=== PATIENT | male | born 1945 | race Caucasian/White ===

== ENCOUNTER 2017-05-22 23:13 | Emergency (ER) | payer OTHER, MEDICAID ==
[~2017-05-22] VITALS: Ht 167.6 cm; Wt 57.6 kg
--- NOTE | 2017-05-22 23:22 | NUR ---
PATIENT AMBULATED TO BED 7 AT THIS TIME.
[2017-05-22 23:28] VITALS: BP 143/78
--- NOTE | 2017-05-22 23:32 | NUR ---
71 Y/O M BIB FAMILY W/C/O SEVERE R SHOULDER PAIN X MTHS. FAMILY STATES PT HAS LUNG CANCER STAGE IV. O2 SAT 925, NO S/S OF RESP DISTRESS NOTED. PER FAMILY PT IS IN HOSPICE CARE AND THEY ARE JUST REQUESTING PAIN MEDICATION D/T PT IN SEVERE PAIN. ER MD MADE AWARE.
[2017-05-22] MEDS ORDERED: ONDANSETRON 4 MG ODT PO ONE (23:45)
[2017-05-22] MEDS ORDERED: HYDROmorphone 1 MG/ML AMP IVP ONE (23:45)
--- NOTE | 2017-05-22 23:55 | NUR ---
Inserted 0.75 inch, 20 gauge barlow needle to right shoulder central IV access port to access. Access and drng under sterile procedure. Tolerated well.
--- NOTE | 2017-05-23 00:40 | NUR ---
D/Cd barlow from port after loading port with Heparin 100 units/ml. Bandaid applied to site. Site benign. Tolerated well.
[2017-05-23 00:45] VITALS: BP 116/68
--- NOTE | 2017-05-23 00:45 | NUR ---
Patient discharged with v/s stable. Written and verbal after care instructions given and explained. Patient verbalized understanding. Ambulatory with steady gait. All questions addressed prior to discharge. Advised to follow up with PMD.
== END 2017-05-23 00:45 | disposition home or self-care (01) ==
LOC: MED 23:13
DX: G89.3 Neoplasm related pain (acute) (chronic) (principal); M25.511 Pain in right shoulder; R03.0 Elevated blood-pressure reading, without diagnosis of hypertension; Z88.6 Allergy status to analgesic agent; Z85.118 Personal history of other malignant neoplasm of bronchus and lung
CPT/HCPCS: 73030; 96374; 99284; J1170; J1642; Q0092; S0119

== ENCOUNTER 2017-06-14 23:00 | Inpatient (IN) | payer OTHER, MEDICAID ==
[~2017-06-14] VITALS: Ht 157.5 cm; Wt 53.1 kg
[2017-06-14 23:10] VITALS: BP 115/71
--- NOTE | 2017-06-14 23:25 | NUR ---
BIBA TO ER BED 3
--- NOTE | 2017-06-14 23:39 | NUR ---
71Y/M PT. BIBA TO ED WITH C/O ABDOMINAL PAIN X 2 DAYS. PT. HX. LUNG CA, TERMINAL, ON HOSPICE CARE. AAO X4, UNABLE TO AMBULATE. RESPIRATIONS ON O2 2 LPM VIA N, EVEN AND UNLABORED. BL LUNG CLEAR. SKIN WARM AND DRY. ABDOMEN SOFT AND NON DISTENDED, ACTIVE BS X 4. C/O PAIN 8/10. VSS, ER MD MADE AWARE OF PT. STATUS.
[2017-06-14] MEDS ORDERED: ACETAMINOPHEN EXTRA STRENGTH 500 MG TAB ONE (23:40)
--- NOTE | 2017-06-14 23:41 | NUR ---
Patient being evaluated by physician at bedside.
[2017-06-14] MEDS ORDERED: NACL 0.9% 500 ML IV ONE (23:45)
[2017-06-15] VITALS (7 sets, daily range): BP systolic 93–119; BP diastolic 54–76
--- NOTE | 2017-06-15 00:05 | NUR ---
TAKE PT. TO CT
[2017-06-15 00:13] LABS: HEMATOCRIT 42.1 % (36-52); HEMOGLOBIN 13.7 g/dL (12.0-18.0); MEAN CORPUSCULAR HEMOGLOBIN 29 pg (27-31); MEAN CORPUSCULAR HGB CONC 33 g/dL (33-37); MEAN CORPUSCULAR VOLUME 90 fL (80-94); PLATELET COUNT (AUTO) 129 K/uL (140-450); RED BLOOD CELL COUNT(AUTO) 4.69 MIL/uL (4.20-6.10); WHITE BLOOD COUNT (AUTO) 6.3 K/uL (4.8-10.8)
[2017-06-15 00:24] LABS: ANION GAP 7.3 (8-16); CARBON DIOXIDE 31.3 mmol/L (21-32); CHLORIDE 104 mmol/L (98-107); CREATININE 0.9 mg/dL (0.7-1.3); GLUCOSE 108 mg/dL (74-106); POTASSIUM 4.6 mmol/L (3.5-5.1); SODIUM SERUM 138 mmol/L (136-145); UREA NITROGEN, BLOOD 24 mg/dL (7-18)
[2017-06-15 00:25] LABS: EOSINOPHILS % (MANUAL) 1 % (0-4); LYMPHOCYTES % (MANUAL) 7 % (20-46); MONOCYTES % (MANUAL) 10 % (5-12)
[2017-06-15 00:30] LABS: ALBUMIN 2.9 g/dL (3.4-5.0); ASPARTATE AMINOTRANSFERASE 467 U/L (15-37); TOTAL BILIRUBIN 0.5 mg/dL (0.0-1.0)
--- NOTE | 2017-06-15 00:35 | NUR ---
BACK FROM CT
[2017-06-15 00:37] LABS: APPEARANCE,URINE CLEAR (CLEAR); BILIRUBIN,URINE NEGATIVE (NEGATIVE); BLOOD, URINE NEGATIVE (NEGATIVE); COLOR,URINE YELLOW (YELLOW); LEUKOCYTE ESTERASE ,URINE NEGATIVE (NEGATIVE); NITRITE, URINE NEGATIVE (NEGATIVE); UGLUCOSE NEGATIVE (NEGATIVE)
[2017-06-15] MEDS ORDERED: HYDROmorphone 1 MG/ML AMP IVP ONE (00:40)
[2017-06-15 00:49] LABS: RBC,URINE 0-5 (RARE) /HPF (0-5); WBC,URINE 0-5 (RARE) /HPF (0-5)
--- NOTE | 2017-06-15 01:05 | NUR ---
Patient appears to be resting comfortably in bed. Vital Signs within normal limits. Respirations even and unlabored.
[2017-06-15] MEDS: NACL 0.9% 1,000 ML IV SCH ×2 (01:44→21:44)
[2017-06-15] MEDS ORDERED: ACETAMINOPHEN 325 MG TAB PO PRN (01:45)
[2017-06-15] MEDS ORDERED: PIPERACILLIN/TAZOBACTAM 4.5 GM in DEXTROSE 5% 100 ML IV ONE (02:05)
[2017-06-15] MEDS ORDERED: MORP30TA10 PO (02:09)
[2017-06-15] MEDS ORDERED: AMLO5TAB PO (02:09)
[2017-06-15] MEDS ORDERED: PROC10TA PO (02:09)
[2017-06-15] MEDS ORDERED: ONDA8ODT2 PO (02:09)
[2017-06-15] MEDS ORDERED: [UNRECOGNIZED DRUG - CODE] PO (02:09)
[2017-06-15] MEDS ORDERED: folic acid PO (02:09)
[2017-06-15] MEDS ORDERED: HYDR5TAB PO (02:09)
[2017-06-15] MEDS ORDERED: CYAN100058 PO (02:09)
[2017-06-15] MEDS ORDERED: RIVA15TA1 PO (02:09)
[2017-06-15] MEDS ORDERED: OMEP40EC14 PO (02:09)
--- NOTE | 2017-06-15 02:09 | NUR ---
PT IS AWAKE AND ALERT. GAVE INSTRUCTIONS ON HOW TO GIVE SPUTUM SAMPLE. DAUGHTER HELPED TRANSLATE TO [place]. PT VERBALIZED UNDERSTANDING. PT WILL LET NURSE KNOW WHEN HE SPITS IN CUB.
--- NOTE | 2017-06-15 02:15 | NUR ---
RECEIVED PATIENT FROM THE ER, ACCOMPANIED BY FAMILY. PT IS AOX4, CITIZEN OF [place] SPEAKING, IS ABLE TO MAKE NEEDS KNOWN. NOTED WITH WHEEZING, BUT NO S/S OF DISTRESS. ABDOMEN ROUND, TENDER ON PALPATION AND UPON MOVEMENT. ON O2 VIA NC AT 2 L, WELL TOLERATED BY THE PATIENT. ON TELE MONITORING. NO COMPLAINTS OF PAIN AT THIS TIME. WITH A R AC 18 G, INTACT AND PATENT. NOTED WITH A PORTACATH ON THE RIGHT UPPER CHEST. SKIN INTACT. INITIAL ASSESSMENT DONE. ORIENTED PATIENT TO THE UNIT, VERBALIZED UNDERSTANDING. CALL LIGHT WITHIN REACH. SAFETY CHECKS IN PLACE. WILL CONTINUE TO MONITOR. ALL NEEDS ATTENDED.
--- NOTE | 2017-06-15 02:25 | NUR ---
Patient will be admitted to care of . Admited to TELEMETRY. Will go to room 111B. Belongings list completed. Report to LIA CORONA.
[2017-06-15 02:36] LABS: PROTHROMBIN TIME 10.8 secs (10.8-13.4)
[2017-06-15 02:40] LABS: CHOL/HDL RATIO 2.8 (1-4.5); FREE T4 (FREE THYROXINE) 1.42 ng/dL (0.76-1.46); MAGNESIUM 2.4 mg/dL (1.8-2.4); PHOSPHORUS 2.9 mg/dL (2.5-4.9); THYROID STIMULATING HORMONE 1.05 uIU/mL (0.34-3.74)
[2017-06-15] MEDS ORDERED: ONDANSETRON 4 MG ODT PO SCH (02:55)
[2017-06-15] MEDS ORDERED: ALBUTEROL SULFATE/IPRATROPIU 3 ML SOL IH PRN (02:55)
[2017-06-15] MEDS ORDERED: LEVOFLOXACIN 750 MG/D5W PREMIX 150 ML IV SCH (03:00)
--- NOTE | 2017-06-15 03:00 | NUR ---
APPLIED SEQUENTIALS TO PATIENT. NO S/S OF DISTRESS. WILL CONTINUE TO MONITOR.
--- NOTE | 2017-06-15 03:00 | NUR ---
HANGED NORMAL SALINE, IV INTACT AND PATENT. WILL CONTINUE TO MONITOR.
[2017-06-15] MEDS ORDERED: CLINDAMYCIN 600 MG/4 ML VIAL ONE (03:26)
[2017-06-15] MEDS ORDERED: LEVOFLOXACIN 750 MG/D5W PREMIX 150 ML IV ONE (03:27)
[2017-06-15] MEDS ORDERED: PIPERACILLIN/TAZOBACTAM 2.25 GM VIAL IV ONE (03:28)
--- NOTE | 2017-06-15 03:28 | NUR ---
PAULINE PARIS, WILL CONTINUE TO MONITOR FOR CHANGES.
--- NOTE | 2017-06-15 04:00 | NUR ---
VITAL SIGNS STABLE. NO S/S OF DISTRESS, NO COMPLAINTS OF PAIN. WILL CONTINUE TO MONITOR.
--- NOTE | 2017-06-15 04:15 | NUR ---
RAINA RANDLE PER MD ORDER. WILL CONTINUE TO MONITOR. VITAL SIGNS STABLE.
[2017-06-15] MEDS ORDERED: MORPHINE SULFATE 2 MG/ML SYR IVP PRN (04:30)
[2017-06-15] MEDS ORDERED: BISACODYL 10 MG SUPP RC SCH (04:30)
[2017-06-15] MEDS: CLINDAMYCIN 600 MG in DEXTROSE 5% 50 ML IV SCH ×3 (05:50→20:42)
--- NOTE | 2017-06-15 05:55 | NUR ---
HANGED CLEOCIN, IV PATENT AND INTACT. NO S/S OF DISTRESS. NO COMPLAINTS OF PAIN. PATIENT SEEN HAVING A NON-PRODUCTIVE COUGH. WILL CONTINUE TO MONITOR. ALL NEEDS ATTENDED. CALL LIGHT WITHIN REACH. SAFETY CHECKS IN PLACE.
--- NOTE | 2017-06-15 06:30 | NUR ---
INFORMED PATIENT THAT HE NEEDS TO DO A SPUTUM CULTURE, VERBALIZED UNDERSTANDING. WILL CONTINUE TO MONITOR. ALL NEEDS ATTENDED. CALL LIGHT WITHIN REACH.
[2017-06-15] MEDS: ALBUTEROL SULFATE/IPRATROPIU 3 ML SOL IH SCH ×3 (06:45→19:14)
--- NOTE | 2017-06-15 06:55 | NUR ---
PT WAS ABLE TO EXPECTORATE THE SPUTUM, SAMPLE SENT TO THE LAB.
--- NOTE | 2017-06-15 07:08 | NUR ---
SPUTUM SAMPLE COLLECTED AND GIVEN TO LAI CODY.
--- NOTE | 2017-06-15 07:22 | NUR ---
ENDORSED TO AM SHIFT NURSE FOR CONTINUITY OF CARE, IN STABLE CONDITION
--- NOTE | 2017-06-15 07:23 | NUR ---
RECEIVED PT FROM GLO FITZGERALD AT BEDSIDE. PT IS A&OX4. PT HAS PORT-A-CATH ON R U CHEST. SCDS ON. PT HAS IV ON R AC 18 G RUNNING NS@50. HELPED PT TO BEDSIDE COMMODE. PT VOIDED AND HAD BM. TOLERATED WELL. BACK TO BED. PT IS ON NC 2L. BED ALARM ON. EDUCATED PT TO CALL FOR HELP. CALL LIGHT WITHIN REACH. WILL CONTINUE TO MONITOR.
[2017-06-15 07:47] LABS: PROTHROMBIN TIME 11.7 secs (10.8-13.4)
[2017-06-15] MEDS: amLODIPine 5 MG TAB PO SCH (08:46)
[2017-06-15] MEDS: PANTOPRAZOLE 40 MG INJ VIAL IVP SCH (08:46)
[2017-06-15] MEDS: CYANOCOBALAMIN 1,000 MCG TAB PO SCH (08:46)
[2017-06-15] MEDS: DOCUSATE SODIUM 100 MG GELCAP PO SCH ×2 (08:46→20:41)
[2017-06-15] MEDS: LACTOBACILLUS RHAMNOSUS GG 1 EACH CAP PO SCH (08:46)
--- NOTE | 2017-06-15 09:30 | NUR ---
PT IS RESTING COMFORTABLY IN BED. NO DISTRESS NOTED. CALL LIGHT WITHIN REACH. WILL CONTINUE TO MONITOR.
--- NOTE | 2017-06-15 09:53 | NUR ---
PATIENT HAS BEEN SCREENED AND CATEGORIZED HIGH NUTRITION RISK. PATIENT WILL BE SEEN WITHIN 1-2 DAYS OF ADMISSION. 06/15/17-06/16/[address]
--- NOTE | 2017-06-15 11:30 | NUR ---
AT BEDSIDE. NO DISTRESS NOTED IN PT. NO COMPLAINTS AT THIS TIME. CALL LIGHT WITHIN REACH. WILL CONTINUE TO MONITOR.
--- NOTE | 2017-06-15 13:45 | NUR ---
RT GAVE TX TO PT. PT TOLERATED WELL. CALL LIGHT WITHIN REACH. WILL CONTINUE TO MONITOR.
--- NOTE | 2017-06-15 15:00 | NUR ---
PT IS RESTING COMFORTABLY IN BED. NO DISTRESS NOTED. CALL LIGHT WITHIN REACH. WILL CONTINUE TO MONITOR.
--- NOTE | 2017-06-15 15:56 | NUR ---
06/15/17 RD INITIAL ASSESSMENT COMPLETED PLEASE REFER TO NUTRITION ASSESSMENT UNDER CARE ACTIVITY FOR ESTIMATED NUTRITIONAL NEEDS. RD RECOMMENDATIONS: 1. CONTINUE NPO MEDICALLY APPROPRIATE. 2. IF/WHEN PT IS MEDICALLY STABLE TO BEGIN NUTRITION, CONSIDER TEXTURE RECOMMENDATIONS PER ST AND ADDING ORAL NUTRITION SUPPLEMENT WITH MEALS FOR ADEQUATE KCAL AND PROTEIN. 3. IF PT WILL NEED NUTRITION SUPPORT, PLEASE CONSULT RD FOR RECOMMENDATIONS. 4. RD WILL F/U 2-3 DAYS; HIGH RISK. LYNSEY VELASQUEZ, RD
[2017-06-15] MEDS: RIVAROXABAN 15 MG TAB PO SCH (16:21)
--- NOTE | 2017-06-15 17:29 | NUR ---
ANSWERED 'S QUESTIONS AT BEDSIDE. CALL LIGHT WITHIN REACH. WILL CONTINUE TO MONITOR.
[2017-06-15] MEDS: ACETYLCYSTEINE 10% (100 MG/ML) 100 MG/ML VIAL INH SCH (19:15)
--- NOTE | 2017-06-15 19:18 | NUR ---
ENDORSED CARE OF PT TO GLIBERT FITZGERALD AT BEDSIDE. PT IN STABLE CONDITION.
--- NOTE | 2017-06-15 19:20 | NUR ---
RECEIVED PATIENT REPORT AT BEDSIDE FROM MORNING NURSE. NO SIGNS AND SYMPTOMS OF DISTRESS AT THIS TIME. IV SITE NOTED ON RIGHT AC, IVF RUNNING WELL. PORT-A-CATH NOTED ON RIGHT UPPER CHEST. PT ON 2L O2 VIA NC. PATIENT COMPLAINED OF 4/10 ABDOMINAL PAIN. WILL MEDICATE.
[2017-06-15] MEDS: HYDROcodone/APAP 7.5/325 MG 1 TAB PO PRN (20:41)
--- NOTE | 2017-06-15 23:37 | NUR ---
CHECKED ON PATIENT. PATIENT IS ASLEEP. NO SIGNS AND SYMPTOMS OF DISTRESS NOTED. WILL CONTINUE TO MONITOR.
[2017-06-16] MEDS: HYDROcodone/APAP 7.5/325 MG 1 TAB PO PRN (02:57)
--- NOTE | 2017-06-16 03:57 | NUR ---
CHECKED ON PATIENT. PATIENT IS ASLEEP. NO SIGNS AND SYMPTOMS OF DISTRESS NOTED. WILL CONTINUE TO MONITOR
[2017-06-16 04:00] VITALS: BP 102/75
[2017-06-16] MEDS: CLINDAMYCIN 600 MG in DEXTROSE 5% 50 ML IV SCH ×3 (04:17→21:13)
[2017-06-16] MEDS: NACL 0.9% 1,000 ML IV SCH (04:19)
[2017-06-16] MEDS: ALBUTEROL SULFATE/IPRATROPIU 3 ML SOL IH SCH ×3 (07:12→19:04)
[2017-06-16] MEDS: ACETYLCYSTEINE 10% (100 MG/ML) 100 MG/ML VIAL INH SCH ×3 (07:12→17:00)
[2017-06-16 07:17] LABS: BASOPHILS # (AUTO) 0.1 K/uL (0.00-0.22); BASOPHILS % (AUTO) 1.4 % (0.0-2.0); EOSINOPHILS # (AUTO) 0.1 K/uL (0-0.4); EOSINOPHILS % (AUTO) 2.1 % (0.0-4.0); HEMATOCRIT 38.3 % (36-52); HEMOGLOBIN 12.7 g/dL (12.0-18.0); LYMPHOCYTES # (AUTO) 0.7 K/uL (2.0-11.5); LYMPHOCYTES % (AUTO) 11.9 % (20.5-51.1); MEAN CORPUSCULAR HEMOGLOBIN 29 pg (27-31); MEAN CORPUSCULAR HGB CONC 33 g/dL (33-37); MEAN CORPUSCULAR VOLUME 89 fL (80-94); MONOCYTES # (AUTO) 0.6 K/uL (0.8-1.0); MONOCYTES % (AUTO) 10.8 % (1.7-9.3); NEUTROPHILS % (AUTO) 73.8 % (42.2-75.2); PLATELET COUNT (AUTO) 108 K/uL (140-450); RED BLOOD CELL COUNT(AUTO) 4.32 MIL/uL (4.20-6.10); RED CELL DISTRIBUTION WIDTH 14.9 % (11.6-13.7); WHITE BLOOD COUNT (AUTO) 5.5 K/uL (4.8-10.8)
[2017-06-16 07:21] LABS: ANION GAP 12.1 (8-16); CARBON DIOXIDE 25.3 mmol/L (21-32); CHLORIDE 104 mmol/L (98-107); CREATININE 0.8 mg/dL (0.7-1.3); GLUCOSE 63 mg/dL (74-106); POTASSIUM 4.4 mmol/L (3.5-5.1); SODIUM SERUM 137 mmol/L (136-145); UREA NITROGEN, BLOOD 22 mg/dL (7-18)
--- NOTE | 2017-06-16 07:25 | NUR ---
PATIENT REPORT GIVEN TO MORNING NURSE. PATIENT IS IN STABLE CONDITION. NO SIGNS AND SYMPTOMS OF DISTRESS NOTED. NO COMPLAINTS OF PAIN.
--- NOTE | 2017-06-16 07:26 | NUR ---
RECEIVED PT FROM GILBERT FITZGERALD AT BEDSIDE. PT IS A&OX4. REINTRODUCED MYSELF. PT HAS IV ON R AC 18 G RUNNING NS@50. PT HAS A PORT-A-CATH ON R U CHEST. NO COMPLAINTS AT THIS TIME. CALL LIGHT WITHIN REACH. WILL CONTINUE TO MONITOR.
[2017-06-16 07:41] LABS: MAGNESIUM 2.2 mg/dL (1.8-2.4); PHOSPHORUS 3.6 mg/dL (2.5-4.9)
[2017-06-16 08:00] VITALS: BP 126/74
[2017-06-16] MEDS: PANTOPRAZOLE 40 MG INJ VIAL IVP SCH (08:35)
[2017-06-16] MEDS: CYANOCOBALAMIN 1,000 MCG TAB PO SCH (08:35)
[2017-06-16] MEDS: LEVOFLOXACIN 750 MG/D5W PREMIX 150 ML IV SCH (08:35)
[2017-06-16] MEDS: LACTOBACILLUS RHAMNOSUS GG 1 EACH CAP PO SCH (08:35)
[2017-06-16] MEDS: amLODIPine 5 MG TAB PO SCH (08:36)
[2017-06-16] MEDS: DOCUSATE SODIUM 100 MG GELCAP PO SCH ×2 (08:36→21:09)
[2017-06-16] MEDS ORDERED: BISACODYL 10 MG SUPP RC PRN (10:45)
--- NOTE | 2017-06-16 11:26 | NUR ---
AT BEDSIDE. PT IN STABLE CONDITION. CALL LIGHT WITHIN REACH. WILL CONTINUE TO MONITOR.
[2017-06-16 12:00] VITALS: BP 128/71
--- NOTE | 2017-06-16 12:45 | NUR ---
INSERTED NEW IV ON R HAND 22 G. REMOVED OLD IV DUE TO BEING PAINFUL. PT TOLERATED WELL. CALL LIGHT WITHIN REACH. WILL CONTINUE TO MONITOR.
[2017-06-16] MEDS: ONDANSETRON 4 MG/2 ML VIAL IVP PRN ×2 (13:33→17:32)
--- NOTE | 2017-06-16 14:30 | NUR ---
PT REQUESTS ZOFRAN TO BE ADMINISTERED BEFORE EVERY MEAL. WILL CARRY OUT AND ENDORSE TO NEXT SHIFT.
[2017-06-16 16:00] VITALS: BP 123/69
--- NOTE | 2017-06-16 16:30 | NUR ---
PT IN STABLE CONDITION. FAMILY AT BEDSIDE. CALL LIGHT WITHIN REACH. WILL CONTINUE TO MONITOR.
[2017-06-16] MEDS: RIVAROXABAN 15 MG TAB PO SCH (17:32)
--- NOTE | 2017-06-16 18:00 | NUR ---
FAMILY AT BEDSIDE. NO DISTRESS NOTED IN PT. CALL LIGHT WITHIN REACH. WILL CONTINUE TO MONITOR.
--- NOTE | 2017-06-16 19:35 | NUR ---
ENDORSED CARE OF PT TO ALKA RN AT BEDSIDE. PT IN STABLE CONDITION.
--- NOTE | 2017-06-16 19:36 | NUR ---
RECEIVED REPORT FROM AM NURSE. PT IS IN STABLE CONDITION, AWAKE, ALERT AND ORIENTED X 4. MED SURG PT ON 02 2L VIA NC. IV ACCESS ON RIGHT HAND GAUGE 22. SHAHEED CATHETER ON THE RIGHT CHEST HL. FAMILY AT BEDSIDE, PLAN OF CARE DISCUSSED WITH PT AND FAMILY, BOTH VERBALIZED UNDERSTANDING. PT IS AMBULATORY WITH STAND BY ASSIST. BED ON LOW POSITION, CALL LIGHT AND URINAL WITHIN REACH. WILL CONTINUE TO MONITOR.
[2017-06-16 19:45] VITALS: BP 124/64
--- NOTE | 2017-06-16 20:05 | NUR ---
FAMILY AND PT EXPRESSED CONCERN REGARDING MORPHINE MEDICATION PT IS CURRENTLY RECEIVING IN HOSPITAL THROUGH IV PUSH. STATES THE IV MEDICATION DOES NOT HAVE SAME EFFECT, AND WOULD PREFER TO CHANGE TO HIS ROUTINE MORPHINE MEDICATION, PO BID. DR. LOPEZ (RESIDENT) WAS MADE AWARE OF FAMILY CONCERN AND WILL UPDATE CURRENT ORDER TO A PO MEDICATION.
[2017-06-16] MEDS ORDERED: ACETYLCYSTEINE 10% (100 MG/ML) 100 MG/ML VIAL INH PRN (20:15)
[2017-06-16] MEDS: MORPHINE TAB ER 30 MG TABER PO SCH (21:09)
[2017-06-16] MEDS: LACTULOSE 20 GM/30 ML UDC PO SCH (21:10)
[2017-06-17 00:05] VITALS: BP 106/62
--- NOTE | 2017-06-17 03:05 | NUR ---
MADE ROUNDS. PT IS SLEEPING SHOWING NO S/S OF DISCOMFORT. WILL CONTINUE TO MONITOR.
[2017-06-17] MEDS: NACL 0.9% 1,000 ML IV SCH (04:45)
--- NOTE | 2017-06-17 04:50 | NUR ---
RT SUBCLAVIAN SHAHEED CATH CLEANSED ASEPTICALLY THEN IN USE FOR IVF PER MD ORDER. DRESSING IN PLACED.
[2017-06-17] MEDS: CLINDAMYCIN 600 MG in DEXTROSE 5% 50 ML IV SCH ×3 (04:54→21:04)
--- NOTE | 2017-06-17 07:20 | NUR ---
ASSUMED CONTINUITY OF CARE. NO SIGNS AND SYMPTOMS OF ACUTE DISTRESS NOTED. INITIAL ASSESSMENT DONE. HOB ELEVATED AT 30 DEGREES. KEEP COMFORTABLE ON BED. EXPLAINED DIAGNOSIS, PLAN OF CARE, PAIN MANAGEMENT TEACHING, USE OF CALL LIGHT/BED/TV/BATHROOM. VERBALIZED UNDERSTANDING. FALL PRECAUTION APPLIED. CALL LIGHT WITHIN REACH.
--- NOTE | 2017-06-17 07:25 | NUR ---
ENDORSED PT IN STABLE CONDITION TO AM NURSE.
[2017-06-17] MEDS: ALBUTEROL SULFATE/IPRATROPIU 3 ML SOL IH SCH ×3 (07:27→19:06)
[2017-06-17] MEDS: ACETYLCYSTEINE 10% (100 MG/ML) 100 MG/ML VIAL INH SCH ×3 (07:28→18:00)
--- NOTE | 2017-06-17 07:40 | NUR ---
RT BOSS CAME FOR PT. BREATHING TREATMENT. TOLERATED WELL.
[2017-06-17 08:00] VITALS: BP 97/65
[2017-06-17] MEDS: amLODIPine 5 MG TAB PO SCH (09:00)
[2017-06-17 09:05] VITALS: BP 104/59
[2017-06-17] MEDS: LACTULOSE 20 GM/30 ML UDC PO SCH ×2 (09:11→21:04)
[2017-06-17] MEDS: CYANOCOBALAMIN 1,000 MCG TAB PO SCH (09:12)
[2017-06-17] MEDS: LACTOBACILLUS RHAMNOSUS GG 1 EACH CAP PO SCH (09:12)
[2017-06-17] MEDS: MORPHINE TAB ER 30 MG TABER PO SCH ×2 (09:12→21:05)
[2017-06-17] MEDS: DOCUSATE SODIUM 100 MG GELCAP PO SCH ×2 (09:16→21:05)
[2017-06-17] MEDS: PANTOPRAZOLE 40 MG INJ VIAL IVP SCH (10:15)
[2017-06-17] MEDS: LEVOFLOXACIN 750 MG/D5W PREMIX 150 ML IV SCH (10:16)
[2017-06-17 10:48] LABS: BASOPHILS # (AUTO) 0.1 K/uL (0.00-0.22); BASOPHILS % (AUTO) 1.1 % (0.0-2.0); EOSINOPHILS # (AUTO) 0.1 K/uL (0-0.4); EOSINOPHILS % (AUTO) 2.8 % (0.0-4.0); HEMATOCRIT 37.9 % (36-52); HEMOGLOBIN 12.4 g/dL (12.0-18.0); LYMPHOCYTES # (AUTO) 0.5 K/uL (2.0-11.5); LYMPHOCYTES % (AUTO) 10.7 % (20.5-51.1); MEAN CORPUSCULAR HEMOGLOBIN 29 pg (27-31); MEAN CORPUSCULAR HGB CONC 33 g/dL (33-37); MEAN CORPUSCULAR VOLUME 89 fL (80-94); MONOCYTES # (AUTO) 0.6 K/uL (0.8-1.0); MONOCYTES % (AUTO) 11.4 % (1.7-9.3); NEUTROPHILS # (AUTO) 3.8 K/uL (1.8-7.7); PLATELET COUNT (AUTO) 149 K/uL (140-450); RED BLOOD CELL COUNT(AUTO) 4.24 MIL/uL (4.20-6.10); RED CELL DISTRIBUTION WIDTH 14.8 % (11.6-13.7); WHITE BLOOD COUNT (AUTO) 5.1 K/uL (4.8-10.8)
[2017-06-17 11:05] LABS: ANION GAP 10.7 (8-16); CHLORIDE 105 mmol/L (98-107); CREATININE 0.9 mg/dL (0.7-1.3); GLUCOSE 102 mg/dL (74-106); POTASSIUM 3.7 mmol/L (3.5-5.1); SODIUM SERUM 140 mmol/L (136-145); UREA NITROGEN, BLOOD 21 mg/dL (7-18)
[2017-06-17 11:09] LABS: MAGNESIUM 2.4 mg/dL (1.8-2.4)
--- NOTE | 2017-06-17 11:55 | NUR ---
RT SIMS CAME FOR PT. SCHEDULED BREATHING TREATMENT.
[2017-06-17 12:00] VITALS: BP 96/56
--- NOTE | 2017-06-17 12:17 | NUR ---
PATIENT PRESENTING WITH STRONG PRODUCTIVE COUGH MODERATE THICK YELLOW SECRETIONS
[2017-06-17] MEDS: ONDANSETRON 4 MG/2 ML VIAL IVP PRN ×2 (13:20→21:05)
--- NOTE | 2017-06-17 15:40 | NUR ---
HHN INDUCED THERAPY FOR SPUTUM TOLERATED TX WELL WITHOUT ADVERSE REACTIONS NOTED
--- NOTE | 2017-06-17 15:59 | NUR ---
POST HHN THERAPY TO INDUCE SPUTUM PATIENT UNABLE TO PRODUCE SPONTANEOUS EXPECTORATIONS AT THIS TIME SPECIMEN PLACED ON BEDSIDE TABLE EDUCATION PROVIDED TO PATIENT WITH ACKNOWLEDGEMENT THAT SPECIMEN CUP IS FOR SPUTUM ONLY SAMMIE/LIA NOTIFIED
--- NOTE | 2017-06-17 16:28 | NUR ---
ASSISTED TO BATHROOM. TOLERATED WELL. NO C/O PAIN. NO SOB, NOTED. CONTINUE MONITORING.
[2017-06-17] MEDS: RIVAROXABAN 15 MG TAB PO SCH (17:35)
--- NOTE | 2017-06-17 19:20 | NUR ---
BEDSIDE REPORT GIVEN TO VALERY KHOURY. IVF INFUSING WELL. IN STABLE CONDITION. FAMILY MEMBERS ON BEDSIDE.
--- NOTE | 2017-06-17 19:30 | NUR ---
RECEIVED REPORT FROM AM NURSE. PT FAMILY AT BEDSIDE, PT RESTING IN BED, AOX4, ABLE TO VERBALIZE NEEDS. PT C/O NAUSEA, WILL ADMINISTER ZOFRAN PRN ORDERED. O2 2L NC NOTED. PT DENIES CHEST PAIN, SOB OR S/S OF ACUTE DISTRESS. PORTACATH TO RIGHT SUBCLAVIAN NOTED, IVF INFUSING WELL. DISCUSSED AND REVIEWED PLAN OF CARE WITH PT AND PT'S FAMILY. PT INSTRUCTED TO REMAIN NPO EXCEPT MEDS. PT VERBALIZED UNDERSTANDING. ALL NEEDS MET. SAFETY MEASURES ENSURED. CALL LIGHT WITHIN REACH. WILL CONTINUE TO MONITOR.
[2017-06-17 20:00] VITALS: BP 140/70
--- NOTE | 2017-06-17 21:10 | NUR ---
ASSISTED PT TO RESTROOM, PT ABLE TO AMBULATE WITH STANDBY ASSIST. PT BACK TO BED, HOB HIGH FOWLERS ADMINISTERED DUE MEDICATIONS WITH EDUCATION. PT C/O NAUSEA. ADMINISTERED ZOFRAN IV PRN ORDERED. PT VERBALIZED UNDERSTANDING, TOLERATED MEDS WELL. ALL NEEDS MET. SAFETY MEASURES ENSURED. CALL LIGHT WITHIN REACH. WILL CONTINUE TO MONITOR.
[2017-06-18] VITALS: BP 106/57
--- NOTE | 2017-06-18 00:15 | NUR ---
PT RESTING COMFORTABLY. SPO2 92%, O2 2L NC, PT DENIES SOB. PT ASSISTED TO USE IS, PT ABLE TO USE 10X, INSTRUCTED TO USE IS EVERY HOUR TOLERATED. ALL NEEDS MET. SAFETY MEASURES ENSURED. CALL LIGHT WITHIN REACH.
--- NOTE | 2017-06-18 04:15 | NUR ---
PT SLEEPING COMFORTABLY. SPO2 92% WITH O2 2L NC, RR 20 NONLABORED, NO S/S OF SOB OR ACUTE DISTRESS. ALL NEEDS MET. SAFETY MEASURES ENSURED. CALL LIGHT WITHIN REACH. WILL CONTINUE TO MONITOR.
[2017-06-18] MEDS: CLINDAMYCIN 600 MG in DEXTROSE 5% 50 ML IV SCH ×3 (05:16→21:21)
[2017-06-18 06:10] LABS: BASOPHILS # (AUTO) 0.1 K/uL (0.00-0.22); BASOPHILS % (AUTO) 1.7 % (0.0-2.0); EOSINOPHILS # (AUTO) 0.1 K/uL (0-0.4); EOSINOPHILS % (AUTO) 2.7 % (0.0-4.0); HEMATOCRIT 34.4 % (36-52); HEMOGLOBIN 11.6 g/dL (12.0-18.0); LYMPHOCYTES # (AUTO) 0.7 K/uL (2.0-11.5); LYMPHOCYTES % (AUTO) 15.8 % (20.5-51.1); MEAN CORPUSCULAR HEMOGLOBIN 30 pg (27-31); MEAN CORPUSCULAR HGB CONC 34 g/dL (33-37); MEAN CORPUSCULAR VOLUME 90 fL (80-94); MONOCYTES # (AUTO) 0.4 K/uL (0.8-1.0); MONOCYTES % (AUTO) 8.4 % (1.7-9.3); NEUTROPHILS # (AUTO) 3.1 K/uL (1.8-7.7); NEUTROPHILS % (AUTO) 71.4 % (42.2-75.2); PLATELET COUNT (AUTO) 115 K/uL (140-450); RED BLOOD CELL COUNT(AUTO) 3.84 MIL/uL (4.20-6.10); RED CELL DISTRIBUTION WIDTH 14.9 % (11.6-13.7); WHITE BLOOD COUNT (AUTO) 4.4 K/uL (4.8-10.8)
[2017-06-18 06:36] LABS: ANION GAP 12.8 (8-16); CARBON DIOXIDE 25.1 mmol/L (21-32); CHLORIDE 107 mmol/L (98-107); CREATININE 0.8 mg/dL (0.7-1.3); GLUCOSE 72 mg/dL (74-106); POTASSIUM 3.9 mmol/L (3.5-5.1); SODIUM SERUM 141 mmol/L (136-145); UREA NITROGEN, BLOOD 18 mg/dL (7-18)
[2017-06-18 06:51] LABS: MAGNESIUM 2.4 mg/dL (1.8-2.4); PHOSPHORUS 3.2 mg/dL (2.5-4.9)
--- NOTE | 2017-06-18 07:14 | NUR ---
ASSUMED CONTINUITY OF CARE. NO SIGNS AND SYMPTOMS OF ACUTE DISTRESS NOTED. INITIAL ASSESSMENT DONE. HOB ELEVATED. KEEP COMFORTABLE ON BED. FALL PRECAUTION APPLIED. CALL LIGHT WITHIN REACH.
--- NOTE | 2017-06-18 07:14 | NUR ---
ENDORSED PLAN OF CARE TO AM NURSE. CONDITION STABLE.
[2017-06-18] MEDS: ALBUTEROL SULFATE/IPRATROPIU 3 ML SOL IH SCH ×3 (07:17→19:47)
[2017-06-18] MEDS: ACETYLCYSTEINE 10% (100 MG/ML) 100 MG/ML VIAL INH SCH ×3 (07:17→19:48)
[2017-06-18 08:00] VITALS: BP 98/51
[2017-06-18] MEDS: PANTOPRAZOLE 40 MG INJ VIAL IVP SCH (08:23)
[2017-06-18] MEDS: LEVOFLOXACIN 750 MG/D5W PREMIX 150 ML IV SCH (08:23)
[2017-06-18 08:41] LABS: PROTHROMBIN TIME 11.5 secs (10.8-13.4)
[2017-06-18] MEDS: LACTULOSE 20 GM/30 ML UDC PO SCH ×3 (09:00→21:00)
[2017-06-18] MEDS: CYANOCOBALAMIN 1,000 MCG TAB PO SCH ×2 (09:00→11:20)
[2017-06-18] MEDS: DOCUSATE SODIUM 100 MG GELCAP PO SCH ×3 (09:00→21:00)
[2017-06-18] MEDS: MORPHINE TAB ER 30 MG TABER PO SCH (09:00)
[2017-06-18] MEDS: amLODIPine 5 MG TAB PO SCH (09:00)
[2017-06-18] MEDS: LACTOBACILLUS RHAMNOSUS GG 1 EACH CAP PO SCH ×2 (09:00→11:20)
--- NOTE | 2017-06-18 10:20 | NUR ---
PHYSICAL THERAPIST CAME FOR PT. TREATMENT.
--- NOTE | 2017-06-18 11:15 | NUR ---
DR. CUMMINS CAME AND SPOKE TO PT. .
--- NOTE | 2017-06-18 11:23 | NUR ---
SS NOTE: PER BEAU FROM [facility] ([phone]), THEIR NURSE WILL COME TO EVALUATE PT AROUND NOON. SHE ALSO STATED THAT THEY CAN PROVIDE PT WITH A FWW FOR HOME USE.
--- NOTE | 2017-06-18 11:42 | NUR ---
Patient's Plan of Care was discussed and reviewed with PRIMARY SCHOOL TEACHER LIBRARIAN: SAMMIE RICE
[2017-06-18] MEDS: DEXT 5% / NACL 0.45% 1,000 ML IV SCH ×2 (11:44→21:05)
[2017-06-18] MEDS: ONDANSETRON 4 MG/2 ML VIAL IVP PRN (11:47)
[2017-06-18 12:00] VITALS: BP 104/60
--- NOTE | 2017-06-18 12:55 | NUR ---
06/18/17 RD FOLLOW-UP ASSESSMENT COMPLETED PLEASE REFER TO NUTRITION ASSESSMENT UNDER CARE ACTIVITY FOR ESTIMATED NUTRITIONAL NEEDS. 1. WHEN MEDICALLY FEASIBLE, CONSIDER INITIATING PO DIET TO START ON CLEAR LIQUID AND ADVANCE TOLERATED TO REGULAR DIET WITH APPROPRIATE TEXTURE PER ST RECOMMENDATIONS 2. CONSIDER ONS - BOOST TID WITH MEALS FOR ADEQUATE KCAL AND PROTEIN NEEDS 3. IF PATIENT WILL NEED NUTRITION SUPPORT, PLEASE CONSULT RD FOR RECOMMENDATIONS. 4. RD TO FOLLOW UP IN 2-3 DAYS; HIGH RISK YANIRA ORTA RD
--- NOTE | 2017-06-18 14:30 | NUR ---
DR. RIVER CAME FOR PT. US GUIDED THORACENTESIS. PT. FAMILY MEMBERS ON BEDSIDE.
--- NOTE | 2017-06-18 15:00 | NUR ---
THORACENTESIS DONE AT THIS TIME. 2 LITERS OF BODY FLUID OUTPUT COLLECTED AND SENT TO LAB PER MD ORDER.
[2017-06-18 17:40] VITALS: BP 106/64
[2017-06-18] MEDS: HYDROcodone/APAP 7.5/325 MG 1 TAB PO PRN (17:56)
[2017-06-18] MEDS ORDERED: MORPHINE SULFATE 2 MG/ML SYR IVP PRN (18:05)
--- NOTE | 2017-06-18 19:16 | NUR ---
BEDSIDE REPORT GIVEN TO MARLON HARVEY. IVF INFUSING WELL. IN STABLE CONDITION. FAMILY MEMBERS ON BEDSIDE. SPEECH THERAPIST WITH DOING SWALLOW EVAL.
--- NOTE | 2017-06-18 19:17 | NUR ---
RECD. RESTING IN BED, AWAKE, A/X04, ON AT 2 LITERS VIA N/C, 02 SAT- 94%. RESPIRATION EVEN AND UNLABORED. BARBARA CATH IN THE RIGHT SUBCLAVIAN, WITH DRESSING DRY AND INTACT. IV OF D5 1/2 NS AT 100 ML/HR INFUSING. SEEMS WEAK. STILL NAUSEATED, WAS MEDICATED BY AM NURSE. PLAN OF CARE FOR THE SHIFT DISCUSSED. VERBALIZE UNDERSTANDING. PAIN IN THE ABDOMEN DESCRIBED "POQUITO", 11/06. INSTRUCTED TO CALL NURSE, WHEN NEEDING HELP. [id number] UNDERSTANDING.
--- NOTE | 2017-06-18 19:20 | NUR ---
Patient's Plan of Care was discussed and reviewed with KIDNEY PULLER: MARLON STEWART
--- NOTE | 2017-06-18 20:13 | NUR ---
ROUND CUTTER OPERATOR NOTE 19:15-20:00 Bedside swallow evaluation and OME completed. Please refer to ROUND CUTTER OPERATOR evaluation for H+P. ROUND CUTTER OPERATOR consulted d/t pt vomiting and ongoing aspiration PNA. Pt seen at bedside, Irish speaking, alert to self/setting/situation, able to follow 1-step commands, able to voice wants and needs. Family (spouse included) present at bedside. O: Pt seen for swallow evaluation. Pt is presently NPO except meds, however per LIA Díaz, was vomiting earlier today afterwards. Pain: Indicated towards stomach, no c/o nausea at this time. OME: Mild reduced muscle ROM/Tone. CONSISTENCIES EVALUATED: Thin liquids (water and Boost-vanilla). Pt refused PLOF texture of puree 2/2 apprehension re: vomiting. ORAL PHASE: Fair bolus acceptance w/spoon, reduced labial closure. WFL labial closure w/straw. WFL bolus manipulation/prompt a-p transit of liquids. PHARYNGEAL PHASE: Piecemeal swallow noted for all trials. Cough x2 noted w/water, no further overt s/sx of aspiration noted w/any tested consistency. Pt began dry heaving and c/o nausea after water intake. ROUND CUTTER OPERATOR ceased water trial, and brought in vanilla boost after family revealed that was primarily what pt consumed at home w/puree. No c/o nausea or vomiting w/Boost. Pt agreeable to attempt puree next day if no nausea/vomiting present. A: WFL oral phase, probable pharyngeal phase impairment 2/2 s/sx of aspiration w/water P: Recommend BOOST-Vanilla for all PO meals, ROUND CUTTER OPERATOR to f/u next therapy day for puree toleration. Recommend the following strict aspiration precautions: 1. Upright at 90 during and 30 min after PO, 2. Small sips, 3. Slow rate, 4. Double swallow, 5. D/C if pulmonary distress/vomiting occurs, consult ROUND CUTTER OPERATOR/NSG/RT. ROUND CUTTER OPERATOR to follow 1-3x x1wk for diet toleration/advancement + education of safe swallow strategies. Safe swallow precautions posted at [facility] [address]: Educated LIA Díaz and family/pt re: recommendations + safe swallow precautions. All voiced understanding. G8996: CJ (20-39%) G8997: CI (1-19%) Swallow NOMS 1
[2017-06-18 21:25] VITALS: BP 116/67
[2017-06-18] MEDS: MORPHINE SULFATE 2 MG/ML SYR IVP PRN (21:27)
--- NOTE | 2017-06-18 21:30 | NUR ---
REFUSED PO MEDICATIONS, STATED "I WILL VOMIT", MAKES ME NAUSEATED."
--- NOTE | 2017-06-19 | NUR ---
SLEEPING COMFORTABLY IN BED.
[2017-06-19] MEDS: ALBUTEROL SULFATE/IPRATROPIU 3 ML SOL IH SCH ×2 (00:20→12:04)
[2017-06-19] MEDS: ACETYLCYSTEINE 10% (100 MG/ML) 100 MG/ML VIAL INH SCH ×2 (00:20→12:05)
[2017-06-19] MEDS: DEXT 5% / NACL 0.45% 1,000 ML IV SCH (01:13)
[2017-06-19 03:22] VITALS: BP 116/62
[2017-06-19] MEDS: ONDANSETRON 4 MG/2 ML VIAL IVP PRN ×2 (03:22→08:41)
[2017-06-19] MEDS: MORPHINE SULFATE 2 MG/ML SYR IVP PRN ×2 (03:31→11:35)
--- NOTE | 2017-06-19 04:00 | NUR ---
NO COMPLAINT OF PAIN 0/10. RESTING COMFORTABLY IN BED.
[2017-06-19] MEDS: CLINDAMYCIN 600 MG in DEXTROSE 5% 50 ML IV SCH (05:16)
[2017-06-19] MEDS ORDERED: NACL 0.45% 1,000 ML IV SCH (05:55)
[2017-06-19 06:18] LABS: BASOPHILS # (AUTO) 0.1 K/uL (0.00-0.22); BASOPHILS % (AUTO) 1.1 % (0.0-2.0); EOSINOPHILS # (AUTO) 0.1 K/uL (0-0.4); EOSINOPHILS % (AUTO) 2.5 % (0.0-4.0); HEMATOCRIT 37.3 % (36-52); HEMOGLOBIN 12.2 g/dL (12.0-18.0); LYMPHOCYTES # (AUTO) 0.4 K/uL (2.0-11.5); LYMPHOCYTES % (AUTO) 8.4 % (20.5-51.1); MEAN CORPUSCULAR HEMOGLOBIN 29 pg (27-31); MEAN CORPUSCULAR HGB CONC 33 g/dL (33-37); MEAN CORPUSCULAR VOLUME 90 fL (80-94); MONOCYTES # (AUTO) 0.6 K/uL (0.8-1.0); MONOCYTES % (AUTO) 11.1 % (1.7-9.3); NEUTROPHILS # (AUTO) 4.1 K/uL (1.8-7.7); NEUTROPHILS % (AUTO) 76.9 % (42.2-75.2); PLATELET COUNT (AUTO) 106 K/uL (140-450); RED BLOOD CELL COUNT(AUTO) 4.17 MIL/uL (4.20-6.10); RED CELL DISTRIBUTION WIDTH 14.5 % (11.6-13.7); WHITE BLOOD COUNT (AUTO) 5.3 K/uL (4.8-10.8)
--- NOTE | 2017-06-19 07:00 | NUR ---
COMPLAINT OF ABDOMINAL PAIN ATTENDED PROMPTLY, MEDICATED ORDERED. CONDITION REMAIN STABLE. WILL ENDORSE TO AM NURSE FOR CONTINUITY OF CARE.
[2017-06-19 07:19] LABS: ANION GAP 12.2 (8-16); CARBON DIOXIDE 24.5 mmol/L (21-32); CHLORIDE 105 mmol/L (98-107); CREATININE 0.7 mg/dL (0.7-1.3); GLUCOSE 156 mg/dL (74-106); POTASSIUM 3.7 mmol/L (3.5-5.1); SODIUM SERUM 138 mmol/L (136-145); UREA NITROGEN, BLOOD 13 mg/dL (7-18)
--- NOTE | 2017-06-19 07:20 | NUR ---
RECEIVED PT IN BED. ASLEEP. AROUSABLE TO VOICE. ALERT ORIENTEDX3. NO SOB NOTED. PT ON O2 AT 2LPM VIA NC. DEDIES ANY PAIN OR DISCOMFORT AT THIS TIME. POSITIVE BOWEL SOUNDS NOTED ON FOUR QUADRANTS. PT AMBULATORY WITH ASSIST. RIGHT SUBCLAVIAN SHAHEED CATH IN PLACE AND INTACT, PATENT. DENIES ANY PROBLEM WITH BOWEL OR BLADDER ELIMINATION AT THIS TIME. SAFETY PRECAUTION IN PLACE. CALL LIGHT WITHIN REACH.
--- NOTE | 2017-06-19 07:42 | NUR ---
SATURATION 97% ON HUMIDIFIED SUPPLEMENTAL OXYGEN AT 3 LPM VIA NC POST HHN THERAPY TITRATED FIO2 TO 2 LPM FRANKO/RN AT BEDSIDE AWARE OF FIO2 CHANGE
[2017-06-19 08:00] VITALS: BP 124/71
[2017-06-19] MEDS: PANTOPRAZOLE 40 MG INJ VIAL IVP SCH (08:33)
[2017-06-19] MEDS: LACTULOSE 20 GM/30 ML UDC PO SCH (08:33)
[2017-06-19] MEDS: LACTOBACILLUS RHAMNOSUS GG 1 EACH CAP PO SCH (08:33)
[2017-06-19] MEDS: amLODIPine 5 MG TAB PO SCH (08:34)
[2017-06-19] MEDS: CYANOCOBALAMIN 1,000 MCG TAB PO SCH (08:34)
[2017-06-19] MEDS: DOCUSATE SODIUM 100 MG GELCAP PO SCH (08:34)
[2017-06-19] MEDS: LEVOFLOXACIN 750 MG/D5W PREMIX 150 ML IV SCH (08:41)
[2017-06-19] MEDS ORDERED: LEVO750T2 PO (11:41)
[2017-06-19] MEDS ORDERED: LACT10CA PO (11:41)
--- NOTE | 2017-06-19 12:15 | NUR ---
POST HHN THERAPY SPONTANEOUS EXPECTORATION OF LARGE CLEAR/FROTHY SECRETIONS
--- NOTE | 2017-06-19 12:40 | NUR ---
Social Service Note: I met wiht patient's Klarissa Dobbins at bedside. Per Klarissa Harper, she prefers to be the one who provides transportation for patient to return home upon discharge today. [facility] I informed her patient will be discharged home today. Per Tiffany, they have already coordinated with appropriate staff and will take care of patient's needs once he is home. Tiffany stated patient can return home any time today, charge nurse Hiren and case investigator Ramsey herr.
[2017-06-19] MEDS ORDERED: CLINDAMYCIN 600 MG in DEXTROSE 5% 50 ML IV SCH (13:00)
--- NOTE | 2017-06-19 13:18 | NUR ---
QUALIFICATIONS EXAMINER note (attempted dysphagia therapy) 1310. QUALIFICATIONS EXAMINER came to provide dysphagia therapy; however, pt declining PO at this time due to fears about nausea/vomiting. Per LIA (Kaelyn) pt has not vomited during this shift, but area representative reported that pt was vomiting during the area representative. RN reported that pt hasn't been taking PO in any notable amount during this shift. QUALIFICATIONS EXAMINER respected pt's right to refuse therapy at this time. Pt with physician orders to discharge home and return to hospice care today. QUALIFICATIONS EXAMINER will discharge pt from QUALIFICATIONS EXAMINER intervention at this time. Please see discharge summary report for details. Addendum: 06/19/17 at [address] for d/w LIA Queen) prior to and following dysphagia therapy attempt.
--- NOTE | 2017-06-19 13:23 | NUR ---
ENT NURSE Discharge Summary Report S: Pt was provided with bedside swallow evaluation on 06/18/2017. Dysphagia therapy was attempted on 06/19/2017. O/A: Per bedside swallow evaluation: pt was recommended for Vanilla flavor nutrition supplement beverage and continued assessment of pt's ability to tolerate his baseline textures of pureed textures with thin liquids. Per dysphagia therapy attempt: pt refusing most PO due to fears about nausea and vomiting. Pt reported to be vomiting yesterday and during shiftman. P: Pt with discharge orders to return home with hospice care today. No further ENT NURSE intervention indicated at this time due to plan of discharge home with return to hospice care. Further plan of care per hospice, as appropriate. G-codes: [id number] [facility] NOMS level 3.
[2017-06-19 13:40] VITALS: BP 115/67
--- NOTE | 2017-06-19 13:46 | NUR ---
CALLED ROSSANA [phone] REGARDING PT DISCHARGE ORDER. 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
--- NOTE | 2017-06-19 14:19 | NUR ---
ROSSANA CAME TO ROLLER SHOP SUPERVISOR PT. DISCHARGE INSTRUCTIONS AND TEACHINGS GIVEN AND EXPLAINED TO PT. PT VERBALIZED UNDERSTANDING AND WOULD WANT THE TO SIGN THE DISCHARGE PAPERS. ROSSANA SIGNED DISCHARGE PAPERS AND INSTRUCTED TO FOLLOW UP WITH HOSPICE PCP. NAME ARMBAND REMOVED. PT GOING HOME WITH SHAHEED CATH ON RIGHT SUBCLAVIAN VEIN, PATENT, INTACT. PT AMBULATORY. PT AND VERBALIZED UNDERSTANDING OF THE DISCHARGE INSTRUCTIONS AND TEACHINGS. PT ASSISTED BY TOOLING MANAGER GETTING CHANGED AND READY. PT WHEELED OUT BY TOOLING MANAGER GOING TO THE HOSPITAL PARKING LOT TO THEIR PRIVATE VEHICLE. PT DISCHARGED ON STABLE CONDITION.
--- NOTE | 2017-06-19 14:40 | NUR ---
PER ROSSANA SHE WANTS TO TAKE THE TUBING FROM THE SHAHEED CATH. CHARGE NURSE REMOVED TUBING. APPLIED PRESSURE. LITTLE BLEEDING NOTED. PUT DRESSING AND PRESSURE. NO ACTIVE BLEEDING NOTED.
--- NOTE | 2017-06-19 14:44 | NUR ---
06/19/17 RD FOLLOW-UP ASSESSMENT COMPLETED 1. CONTINUE CLEAR LIQUID DIET WITH ONS - BOOST TID 2. CONTINUE TO ENCOURAGE INCREASED PO INTAKE TO TOLERANCE 3. IF PATIENT WILL NEED NUTRITION SUPPORT, PLEASE CONSULT RD FOR RECOMMENDATIONS 4. RD TO FOLLOW UP 2-3 DAYS; HIGH RISK YANIRA ORTA, SUZANNE
--- NOTE | 2017-06-19 14:45 | NUR ---
PT ASSISTED BY IFRAH WHEELED OUT OF THE HOSPITAL GOING OUT OF THE HOSPITAL TO THEIR PRIVATE CAR. NO SOB NOTED. PT DENIES ANY PAIN OR DISCOMFORT AT THIS TIME. PT DISCHARGED ON STABLE CONDITION.
[2017-06-19] MEDS ORDERED: RIVAROXABAN 15 MG TAB PO SCH (17:00)
== END 2017-06-19 14:45 | disposition hospice, home (50) | DRG 871 ==
LOC: MED 23:00 → MTU 06-15 01:51
PROVIDERS: ADMIT Family Medicine; ATTEND Family Medicine
PROC: 0W993ZZ Drainage of Right Pleural Cavity, Percutaneous Approach (ICD-10-PCS; principal; 2017-06-18)
DX: A41.9 Sepsis, unspecified organism (principal); J69.0 Pneumonitis due to inhalation of food and vomit; N17.0 Acute kidney failure with tubular necrosis; J96.01 Acute respiratory failure with hypoxia; E43 Unspecified severe protein-calorie malnutrition; I50.43 Acute on chronic combined systolic (congestive) and diastolic (congestive) heart failure; C78.7 Secondary malignant neoplasm of liver and intrahepatic bile duct; D68.59 Other primary thrombophilia; E11.65 Type 2 diabetes mellitus with hyperglycemia; J90 Pleural effusion, not elsewhere classified; C34.90 Malignant neoplasm of unspecified part of unspecified bronchus or lung; Z51.5 Encounter for palliative care; Z68.21 Body mass index [BMI] 21.0-21.9, adult; I27.2 Other secondary pulmonary hypertension; N28.1 Cyst of kidney, acquired; R80.9 Proteinuria, unspecified; D69.59 Other secondary thrombocytopenia; K80.20 Calculus of gallbladder without cholecystitis without obstruction; I11.0 Hypertensive heart disease with heart failure; K21.9 Gastro-esophageal reflux disease without esophagitis; I07.1 Rheumatic tricuspid insufficiency; K59.00 Constipation, unspecified; Z88.6 Allergy status to analgesic agent; Z86.711 Personal history of pulmonary embolism; Z87.11 Personal history of peptic ulcer disease; Z79.01 Long term (current) use of anticoagulants; Z92.21 Personal history of antineoplastic chemotherapy
CPT/HCPCS: 36415; 71010; 76604; 76942; 80048; 80053; 81001; 82150; 83036; 83605; 83690; 83735; 83880; 84100; 84439; 84443; 84484; 85025; 85610; 85730; 87040; 87070; 87075; 87081; 87205; 88104; 92610; 93005; 93970; 94640; 96361; 96374; 97110; 97116; 97530; 97799; 99285; C9113; J1170; J1956; J2001; J2270; J2405; J2543; J3420; J3490; J7030; J7060; J7620; Q0092; Q0163